=== PATIENT | female | born 1935 | race Two or more races ===

== ENCOUNTER → 2020-09-19 | Outpatient (CLI) | payer OTHER ==
[~2020-09-19] MED LIST: CARVEDILOL; CEFADROXIL500 MG PO; HUMULIN 70/30 V10 ML SUBCUTANEO; IMODIUM A-D2 MG PO; LOSARTAN; PEPCID20 MG PO; PERCOCET 5/3251 TAB PO; XARELTO10 MG PO
== END | disposition home or self-care (01) ==
LOC: OFIC 805 11:00
PROVIDERS: ATTEND Otolaryngology
DX: K21.9 Gastro-esophageal reflux disease without esophagitis (principal); H90.3 Sensorineural hearing loss, bilateral; H93.8X3 Other specified disorders of ear, bilateral